=== PATIENT | female | born 1985 | race Two or more races ===

== ENCOUNTER 2016-11-22 00:06 | Emergency (ER) | payer SELFPAY ==
[2016-11-22] MEDS ORDERED: ASPIRIN 81 MG TABLET, CHEWABLE PO ONE (01:23)
[2016-11-22 02:18] LABS: ABSOLUTE BASOPHILS # (AUTO) 0.1 10^3/uL (0.0-0.2); ABSOLUTE EOSINOPHILS # (AUTO) 0.2 10^3/uL (0.0-0.6); ABSOLUTE LYMPHOCYTES (AUTO) 1.9 10^3/uL (0.5-4.7); ABSOLUTE MONOCYTES (AUTO) 1.1 10^3/uL (0.1-1.4); BASOPHILS % (AUTO) 0.4 % (0-2); EOSINOPHILS % (AUTO) 0.8 % (0-6); HEMATOCRIT 39.4 % (36.0-47.0); HGB HCT DIFFERENCE -0.4; LYMPHOCYTES % (AUTO) 10.1 % (13-45); MEAN CORPUSCULAR HEMOGLOBIN 31.2 pg (27.0-33.4); MEAN CORPUSCULAR VOLUME 94 fl (80-97); MONOCYTES % (AUTO) 5.9 % (3-13); RED BLOOD COUNT 4.17 10^6/uL (3.72-5.28); RED CELL DISTRIBUTION WIDTH 12.8 % (11.5-14.0); SEGMENTED NEUTROPHILS % (AUTO) 82.8 % (42-78); WHITE BLOOD COUNT 19.3 10^3/uL (4.0-10.5)
[2016-11-22 02:27] LABS: ALANINE AMINOTRANSFERASE 23 U/L (9-52); ALBUMIN 4.4 g/dL (3.5-5.0); ALKALINE PHOSPHATASE 97 U/L (38-126); ANION GAP 12 (5-19); ASPARTATE AMINO TRANSFERASE 17 U/L (14-36); BILIRUBIN,DIRECT 0.4 mg/dL (0.0-0.4); BILIRUBIN,TOTAL 0.7 mg/dL (0.2-1.3); BLOOD UREA NITROGEN 12 mg/dL (7-20); CALCIUM 9.9 mg/dL (8.4-10.2); CARBON DIOXIDE 24 mmol/L (22-30); CHLORIDE 103 mmol/L (98-107); CREATINE KINASE 55 U/L (30-135); CREATININE RESULT 0.77 mg/dL (0.52-1.25); GLUCOSE 172 mg/dL (75-110); POTASSIUM 4.3 mmol/L (3.6-5.0); SODIUM 139.2 mmol/L (137-145); TOTAL PROTEIN 8.1 g/dL (6.3-8.2)
[2016-11-22 02:39] LABS: CREATINE KINASE MB < 0.22 ng/mL (<4.55); TROPONIN I < 0.012 ng/mL
[2016-11-22] MEDS ORDERED: ALBUTEROL SULFATE 0.083% NEB 2.5 MG/3 ML AMPUL NEB ONE (03:21)
[2016-11-22] MEDS ORDERED: HYDROCODONE/ACETAMINOPHEN 5-325 MG 6 TAB/DSPK PO PRN (03:22)
[2016-11-22] MEDS ORDERED: HYDROCODONE/ACETAMINOPHEN 5-325 MG TABLET PO ONE (03:22)
[2016-11-22] MEDS ORDERED: DOXYCYCLINE HYCLATE 100 MG TABLET PO ONE (03:22)
--- NOTE | 2016-11-22 03:22 | ER Document Report ---
ED General - General Chief Complaint: Chest Pain Stated Complaint: CHEST PAIN Time Seen by Provider: 11/22/16 03:05 Mode of Arrival: Ambulatory Information source: Patient Notes: Patient is a 31-year-old -[place] female who presents to the ER today for 3 days of left chest pain radiating around to her back. Patient states that it feels like "rib pain." She does state that a storm door fell on her 4 days ago on she's been taking Motrin and Flexeril because she thought that is what caused her pain. She admits to some shortness of breath and pain with breathing on the left side only, nausea with no vomiting and headache. She also admits to body aches and fatigue. She denies any cough, fever, chills, runny nose, sinus congestion or other sick symptoms. She has no history of asthma. TRAVEL OUTSIDE OF THE [place] IN LAST 30 DAYS: No - Related Data Allergies/Adverse Reactions: No Known Allergies Allergy (Unverified 11/22/16 01:51) Past Medical History - General Information source: Patient - Social History Smoking Status: Never Smoker Family History: Reviewed & Not Pertinent Patient has suicidal ideation: No Patient has homicidal ideation: No Renal/ Medical History: Denies: Hx Peritoneal Dialysis Review of Systems - Review of Systems Constitutional: No symptoms reported EENT: No symptoms reported Cardiovascular: No symptoms reported Respiratory: See HPI Gastrointestinal: No symptoms reported Genitourinary: No symptoms reported Female Genitourinary: No symptoms reported Musculoskeletal: No symptoms reported Skin: No symptoms reported Hematologic/Lymphatic: No symptoms reported Neurological/Psychological: No symptoms reported Physical Exam - Vital signs Vitals: Temp Pulse Resp BP Pulse Ox 98.8 F 94 18 121/75 97 11/22/16 01:19 11/22/16 01:19 11/22/16 01:19 11/22/16 01:19 11/22/16 01:19 - Notes Notes: PHYSICAL EXAMINATION: GENERAL: Mildly ill-appearing, but in no acute distress. HEAD: Atraumatic, normocephalic. EYES: Pupils equal round and reactive to light, extraocular movements intact, sclera anicteric, conjunctiva are normal. ENT: ear canals without erythema or foreign body, TMs pearly mcclellan with good bony landmarks, nares patent, oropharynx clear without exudates. Moist mucous membranes. NECK: Normal range of motion, supple without lymphadenopathy LUNGS: ribs nontender, rhonchi in left lower lung field, pt not taking deep breaths due to pain, No wheezes or rales HEART: Regular rate and rhythm without murmurs ABDOMEN: Soft, no tenderness. No guarding, no rebound BACK: no vertebral tenderness, normal ROM GI/: no CVA tenderness EXTREMITIES: Normal range of motion, no pitting edema. No cyanosis. NEUROLOGICAL: Cranial nerves grossly intact. Normal sensory/motor exams. PSYCH: Normal mood, normal affect. SKIN: Warm, Dry, normal turgor, no rashes or lesions noted Course - Re-evaluation Re-evalutation: 11/22/16 03:29 pt has a WBC of 19 with a left shift, pneumonia seen on chest x ray in left lower field consistent with pt's pain and shortness of breath. pt will be treated with doxycycline and albuterol, prednisone. - Vital Signs Vital signs: Temp Pulse Resp BP Pulse Ox 98.8 F 90 16 123/69 96 11/22/16 01:19 11/22/16 04:08 11/22/16 04:08 11/22/16 04:08 11/22/16 04:08 - Laboratory Result Diagrams: 11/22/16 01:45 11/22/16 01:45 Laboratory results interpreted by me: 11/22/16 11/22/16 01:45 01:45 WBC 19.3 H Seg Neutrophils % 82.8 H Lymphocytes % 10.1 L Absolute Neutrophils 16.0 H Glucose 172 H Discharge - Discharge Clinical Impression: Pneumonia Qualifiers: Pneumonia type: due to unspecified organism Laterality: left Lung location: lower lobe of lung Qualified Code(s): J18.1 - Lobar pneumonia, unspecified organism Condition: Stable Disposition: HOME, SELF-CARE Instructions: Pneumonia ([facility]) Additional Instructions: Take all of your antibiotic, even if you feel better. Return immediately for any new or worsening symptoms. Follow up with primary care provider, call tomorrow to make followup appointment. Prescriptions: Doxycycline Hyclate 100 mg PO BID #20 capsule Hydrocodone/Acetaminophen [[place] 5-325 mg Tablet] 1 tab PO Q4 PRN #20 tablet PRN Reason: Prednisone [Deltasone 20 mg Tablet] 3 tab PO DAILY 5 Days Forms: Return to Work
[2016-11-22] MEDS ORDERED: PREDNISONE 20 MG TABLET PO ONE (03:23)
[2016-11-22] MEDS ORDERED: ALBUTEROL SULFATE HFA (90 MCG/PUFF) 8 GM MDI (1 MDI/ER DISP) IH PRN (03:33)
[2016-11-22 04:09] VITALS: BP 123/69
--- NOTE | 2016-11-22 13:53 | EKG REPORT ---
SEVERITY:- NORMAL ECG - SINUS RHYTHM : Confirmed by: Vazquez Fregoso 22-Nov-2016 13:53:09
== END 2016-11-22 04:08 | disposition home or self-care (01) ==
LOC: ER 00:06
DX: J18.1 Lobar pneumonia, unspecified organism (principal); R07.9 Chest pain, unspecified; R06.02 Shortness of breath
CPT/HCPCS: 93005; 94640; 99285; 36415; 82553; 82550; 85025; 80053; 84484; 71010; 93010; J7512; J3490

== ENCOUNTER 2016-12-12 16:43 | Inpatient (IN) | payer OTHER ==
--- NOTE | 2016-12-12 19:39 | ER Document Report ---
ED Medical Screen (RME) - General Chief Complaint: Breathing Difficulty Stated Complaint: DIFFICULTY BREATHING Time Seen by Provider: 12/12/16 19:23 Mode of Arrival: Ambulatory Information source: Patient Notes: This is a 31-year-old female with a recent history of pneumonia who presents for shortness of breath and concern for recurrence of pneumonia. She states that for the past 4 days she has had right-sided upper back pain that is worse with deep breathing and makes her feel short of breath. Her symptoms seem to be worse upon laying down to sleep at night. She denies any fevers or chills. She denies any productive cough. [facility] to come to the ER to rule out pneumonia versus PE. Was treated here on November 22 for a left lower lobe pneumonia with doxycycline and prednisone. I have greeted and performed a rapid initial assessment of this patient. A comprehensive ED assessment and evaluation of the patient, analysis of test results and completion of the medical decision making process will be conducted by additional ED providers. TRAVEL OUTSIDE OF THE [place] IN LAST 30 DAYS: No - Related Data Allergies/Adverse Reactions: No Known Allergies Allergy (Unverified 12/12/16 19:10) Past Medical History Renal/ Medical History: Denies: Hx Peritoneal Dialysis Physical Exam - General General appearance: Appears well In distress: None - Respiratory Respiratory status: No respiratory distress Breath sounds: Normal. No: Rales, Rhonchi, Wheezing - Cardiovascular Rhythm: Regular Heart sounds: Normal auscultation, S1 appreciated, S2 appreciated Murmur: No
[2016-12-12 20:09] LABS: ABSOLUTE BASOPHILS # (AUTO) 0.1 10^3/uL (0.0-0.2); ABSOLUTE EOSINOPHILS # (AUTO) 0.7 10^3/uL (0.0-0.6); ABSOLUTE LYMPHOCYTES (AUTO) 4.2 10^3/uL (0.5-4.7); ABSOLUTE MONOCYTES (AUTO) 0.7 10^3/uL (0.1-1.4); ABSOLUTE NEUT (AUTO) 7.6 10^3/uL (1.7-8.2); BASOPHILS % (AUTO) 0.8 % (0-2); EOSINOPHILS % (AUTO) 5.1 % (0-6); HEMATOCRIT 38.9 % (36.0-47.0); HGB HCT DIFFERENCE 0.1; LYMPHOCYTES % (AUTO) 31.8 % (13-45); MEAN CORPUSCULAR HGB CONC 33.4 g/dL (32.0-36.0); MEAN CORPUSCULAR VOLUME 93 fl (80-97); MONOCYTES % (AUTO) 5.3 % (3-13); RED BLOOD COUNT 4.18 10^6/uL (3.72-5.28); RED CELL DISTRIBUTION WIDTH 13.2 % (11.5-14.0); WHITE BLOOD COUNT 13.3 10^3/uL (4.0-10.5)
[2016-12-12 20:22] LABS: ALANINE AMINOTRANSFERASE 24 U/L (9-52); ALBUMIN 4.4 g/dL (3.5-5.0); ALKALINE PHOSPHATASE 82 U/L (38-126); ANION GAP 13 (5-19); ASPARTATE AMINO TRANSFERASE 20 U/L (14-36); BILIRUBIN,DIRECT 0.3 mg/dL (0.0-0.4); BILIRUBIN,TOTAL 0.5 mg/dL (0.2-1.3); BLOOD UREA NITROGEN 11 mg/dL (7-20); CALCIUM 10.2 mg/dL (8.4-10.2); CARBON DIOXIDE 25 mmol/L (22-30); CHLORIDE 104 mmol/L (98-107); CREATININE RESULT 0.76 mg/dL (0.52-1.25); GLUCOSE 122 mg/dL (75-110); POTASSIUM 4.5 mmol/L (3.6-5.0); SODIUM 142.2 mmol/L (137-145); TOTAL PROTEIN 7.9 g/dL (6.3-8.2)
--- NOTE | 2016-12-12 20:29 | RADIOLOGY REPORT (SQ) ---
EXAM DESCRIPTION: CHEST PA/LAT COMPLETED DATE/TIME: 12/12/2016 8:11 pm REASON FOR STUDY: cough, dyspnea, chest pain COMPARISON: 11/22/2016 EXAM PARAMETERS: NUMBER OF VIEWS: two views TECHNIQUE: Digital Frontal and Lateral radiographic views of the chest acquired. RADIATION DOSE: NA LIMITATIONS: none FINDINGS: LUNGS AND PLEURA: No opacities, masses or pneumothorax. No pleural effusion. MEDIASTINUM AND HILAR STRUCTURES: No masses or contour abnormalities. HEART AND VASCULAR STRUCTURES: Heart normal size. No evidence for failure. BONES: No acute findings. HARDWARE: None in the chest. OTHER: No other significant finding. IMPRESSION: NO SIGNIFICANT RADIOGRAPHIC FINDING IN THE CHEST. TECHNICAL DOCUMENTATION: JOB ID: [id number] [employer]- All Rights Reserved
--- NOTE | 2016-12-12 21:17 | ER Document Report ---
ED Respiratory Problem - General Mode of Arrival: Ambulatory TRAVEL OUTSIDE OF THE [place] IN LAST 30 DAYS: No <RADHA DAVIDSON - Last Filed: 12/13/16 00:04> <THIRERY SEAMAN - Last Filed: 12/13/16 00:18> - General Chief Complaint: Breathing Difficulty Stated Complaint: DIFFICULTY BREATHING Time Seen by Provider: 12/12/16 19:23 Notes: Patient is a 31-year-old female, smoker, on OCPs, presents with increasing shortness of breath and pleuritic chest pain in her right posterior thorax over the past 4 days. She was seen at the [facility] today and was sent to the ER to evaluate for possible pneumonia and pulmonary embolism. She was diagnosed with pneumonia on 11/22 and finished her course of doxycycline. She has some relief of her symptoms after her Abx. She had an ultrasound of her left leg completed last week for calf pain that did not show a DVT, but she was told to begin ASA 81 mg for a possible calf clot. She denies current leg pain and swelling, fevers , nausea, numbness, tingling, hemoptysis, recent travel or cough. (RADHA DAVIDSON) - Related Data Allergies/Adverse Reactions: No Known Allergies Allergy (Unverified 12/12/16 19:10) Past Medical History - General Information source: Patient - Social History Smoking Status: Current Every Day Smoker - 1 ppd Family History: Reviewed & Not Pertinent Patient has suicidal ideation: No Patient has homicidal ideation: No Renal/ Medical History: Denies: Hx Peritoneal Dialysis <RADHA DAVIDSON - Last Filed: 12/13/16 00:04> Review of Systems <RADHA DAVIDSON - Last Filed: 12/13/16 00:04> <THIERRY SEAMAN - Last Filed: 12/13/16 00:18> - Review of Systems Notes: REVIEW OF SYSTEMS: CONSTITUTIONAL: -fevers, -chills EENT: -eye pain, -difficulty swallowing, -nasal congestion CARDIOVASCULAR: +chest pain, -syncope. RESPIRATORY: -cough, +SOB GASTROINTESTINAL: -abdominal pain, -nausea, -vomiting, -diarrhea GENITOURINARY: -dysuria, -hematuria MUSCULOSKELETAL: -back pain, -neck pain SKIN: -rash or skin lesions. HEMATOLOGIC: -easy bruising or bleeding. LYMPHATIC: -swollen, enlarged glands. NEUROLOGICAL: -altered mental status or loss of consciousness, -headache, - neurologic symptoms PSYCHIATRIC: -anxiety, -depression. ALL OTHER SYSTEMS REVIEWED AND NEGATIVE. (RADHA DAVIDSON) Physical Exam <RADHA DAVIDSON - Last Filed: 12/13/16 00:04> <THIERRY SEAMAN - Last Filed: 12/13/16 00:18> - Vital signs Vitals: Resp Pulse Ox 22 H 96 12/12/16 22:54 12/12/16 22:54 - Notes Notes: PHYSICAL EXAMINATION: GENERAL: Well-appearing, well-nourished and in no acute distress. HEAD: Atraumatic, normocephalic. EYES: Pupils equal round and reactive to light, extraocular movements intact, sclera anicteric, conjunctiva are normal. ENT: nares patent, oropharynx clear without exudates. Moist mucous membranes. NECK: Normal range of motion, supple without lymphadenopathy LUNGS: Breath sounds clear to auscultation bilaterally and equal. No wheezes rales or rhonchi. HEART: Regular rate and rhythm without murmurs ABDOMEN: Soft, nontender, normoactive bowel sounds. No guarding, no rebound. No masses appreciated. EXTREMITIES: Normal range of motion, no pitting or edema. No cyanosis. No calf tenderness. NEUROLOGICAL: Cranial nerves grossly intact. Normal speech, normal gait. Normal sensory and motor exams. PSYCH: Normal mood, normal affect. SKIN: Warm, Dry, normal turgor, no rashes or lesions noted. (RADHA DAVIDSON) Course - Laboratory Result Diagrams: 12/12/16 19:50 12/12/16 19:50 - Diagnostic Test Radiology reviewed: Image reviewed, Reports reviewed - EKG Interpretation by Ks EKG shows normal: Sinus rhythm, [place], Intervals, QRS Complexes, ST-T Waves Rate: Normal <RADHA DAVIDSON - Last Filed: 12/13/16 00:04> - Laboratory Result Diagrams: 12/12/16 19:50 12/12/16 19:50 <THIERRY SEAMAN - Last Filed: 12/13/16 00:18> - Re-evaluation Re-evalutation: With SOB and chest pain, pt is low-moderate risk for PE. Unable to PERC out due to OCP use. D-dimer elevated and CTA shows B/L PEs. Pt is HD stable at this time. (RADHA DAVIDSON) 12/13/16 00:17 Discussed with hospitalist will admit to IMCU (THIERRY SEAMAN) - Vital Signs Vital signs: Temp Pulse Resp BP Pulse Ox 17 120/76 96 12/12/16 23:01 12/12/16 23:01 12/12/16 23:01 - Laboratory Laboratory results interpreted by me: 12/12/16 12/12/16 12/12/16 19:50 19:50 19:50 WBC 13.3 H Absolute Eosinophils 0.7 H D-Dimer 2.56 H Glucose 122 H - Diagnostic Test Radiology results interpreted by me: CXR: NAD CTA Chest: Pulmonary embolic disease involving descending pulmonary arteries bilaterally. There is also pulmonary embolic disease involving an upper lobe vessel on the right. Minimal linear airspace density in the posterior sulcus on the right most consistent with subsegmental atelectasis. Remaining lung foy are clear. No pleural effusions are identified. Other findings as noted above. ( RADHA DAVIDSON) Discharge <RADHA DAVIDSON - Last Filed: 12/13/16 00:04> - Discharge Admitting Provider: Hospitalist - [place] [facility] Admitted: [facility] <THIERRY SEAMAN - Last Filed: 12/13/16 00:18> - Discharge Clinical Impression: Pulmonary embolism Qualifiers: Pulmonary embolism type: other Chronicity: acute Acute cor pulmonale presence: without acute cor pulmonale Qualified Code(s): I26.99 - Other pulmonary embolism without acute cor pulmonale Condition: Stable Disposition: ADMITTED OBSERVATION
--- NOTE | 2016-12-12 21:56 | RADIOLOGY REPORT (SQ) ---
EXAM DESCRIPTION: CTA CHEST COMPLETED DATE/TIME: 12/12/2016 9:41 pm REASON FOR STUDY: concern for PE COMPARISON: None. TECHNIQUE: CT scan of the chest performed using helical scanning technique with dynamic intravenous contrast injection. Images reviewed with lung, soft tissue and bone windows. Reconstructed coronal and sagittal MPR images reviewed. Additional 3 dimensional post-processing performed to develop Maximal Intensity Projection images (SC P). All images stored on PACS. All CT scanners at this facility use dose modulation, iterative reconstruction, and/or weight based d osing when appropriate to reduce radiation dose to as low as reasonably achievable (ALARA). [facility]: Dose Right [facility]: CareDose [facility]: Dose Right [facility]: Teradose 4D [facility]: [employer] CONTRAST TYPE AND DOSE: 70 mL Isovue 370 RENAL FUNCTION: Creatinine 0.76 RADIATION DOSE: 34.16 mGy. LIMITATIONS: None. FINDINGS: LUNGS AND PLEURA: No masses, infiltrates, pneumothorax. No pleural effusions, calcificati ons. There is minimal linear airspace density in the posterior sulcus on the right most consistent w ith subsegmental atelectasis. No pneumothorax is seen. AORTA AND GREAT VESSELS: No aneurysm or dissection. HEART: No pericardial effusion. PULMONARY ARTERIES: There is evidence for bilateral pulmonary embolic disease involving descending pu lmonary arteries bilaterally. There is also pulmonary embolic disease an upper lobe vessel on the ri ght HILAR AND MEDIASTINAL STRUCTURES: No identified masses or abnormal nodes. HARDWARE: None in the chest. UPPER ABDOMEN: No significant findings. Limited exam. THYROID AND OTHER SOFT TISSUES: No masses. No adenopathy. BONES: No acute or significant finding. 3D MIPS: Confirm above findings. OTHER: No other significant finding. IMPRESSION: Pulmonary embolic disease involving descending pulmonary arteries bilaterally. There is also pulmonary embolic disease involving an upper lobe vessel on the right Minimal linear airspace d ensity in the posterior sulcus on the right most consistent with subsegmental atelectasis. Remaining lung foy are clear. No pleural effusions are identified. Other findings as noted above TECHNICAL DOCUMENTATION: JOB ID: [id number] Quality ID # [id number]: Final reports with documentation of one or more dose reduction techniques (e.g., Au tomated exposure control, adjustment of the mA and/or kV according to patient size, use of iterative reconstruction technique) 2010 [employer]- All Rights Reserved
[2016-12-12] MEDS ORDERED: ENOXAPARIN SODIUM INJ 80 MG/0.8 ML DISP.SYRIN SUBCUT ONE (22:14)
[2016-12-13 02:16] LABS: PARTIAL THROMBOPLASTIN TIME 34.6 SEC (23.5-35.8); PROTHROMBIN TIME 12.8 SEC (11.4-15.4)
[2016-12-13] MEDS ORDERED: NICOTINE 14 MG/24 HR PATCH.TD24 TD PRN (08:12)
[2016-12-13] MEDS ORDERED: ACETAMINOPHEN 325 MG TABLET PO PRN (08:13)
[2016-12-13] MEDS ORDERED: MAGNESIUM HYDROXIDE SUSP 30 ML UDCUP PO PRN (08:13)
--- NOTE | 2016-12-13 08:32 | PDOC H&P ---
History of Present Illness Admission Date/PCP: 12/13/16 00:21 PCP [place] Patient complains of: SOB, Rt. cp History of Present Illness: ALEJANDRO RATLIFF is a 31 year old -[place] female, 1/2-1 pack a day smoker, also on oral contraceptives, who presents to the emergency room for evaluation of above complaints. Patient has been discussed with emergency room physician who evaluated the patient. She describes a four-day history of slowly increasing shortness of breath, in particular with much of any exertion, along with pleuritic chest pain in her right posterior thorax. Was seen at the [facility] earlier on the and was sent to the emergency room to evaluate for possible pneumonia or pulmonary embolism. Diagnosed with pneumonia on the of last month and finished her course of doxycycline. Some relief of her symptoms after the antibiotics. She did have bilateral lower extremity Doppler exam performed last week, of her thighs, per patient, but stated no DVT was noted. She was however told to begin an aspirin for possible Clot. In mid October of this year, she did take an automobile trip to [place] and returned 8 days later, again by automobile. Few stops along the way. She has noted some mild left foot swelling intermittently since then along with the mild left calf pain noted above. No other lower extremity pain or swelling. No personal or family history of clotting disorders. Denies hemoptysis. Currently resting quietly, pain-free. Has remained hemodynamically stable. Laboratory results are listed in [facility] and are reviewed. X-ray summary results are listed below, with full report(s) reviewed. . EKG reviewed. Social history/personal habits: . Has children. Eighth grade schoolteacher. Tobacco habit as noted above. Rare alcohol. No illicit drug use. No known drug allergies. Home medications none. REVIEW OF SYSTEMS: Constitutional: No fever or chills. Eyes: Wears contacts. ENT: No swallowing problems or complaints. Denies hearing loss. Pulmonary: See history and present illness. Cardiovascular: See history and present illness. Gastrointestinal: No current complaints, including nausea or vomiting. Skin: No current complaints, including rashes. Hematologic: Denies easy bruising. Neurologic: No current complaints, including numbness or tingling. Musculoskeletal: See history and present illness. Psychiatric: Denies anxiety or depression. Endocrine: No current complaints, including polyuria. Genitourinary: No current complaints, including dysuria. PHYSICAL EXAMINATION: 5 feet 7 inches tall. 79.6 kg. BMI 27.5 kg/m. Temperature 98.5. Pulse 66 and regular. Blood pressure 114/73. Respirations are 16 and unlabored. 98% saturation on room air. Slightly overweight otherwise well-nourished well-developed young - Ethiopian female appearing approximately her stated age. Pleasant awake alert and cooperative. No obvious distress other than perhaps mildly anxious. No agitation. 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 Skin is warm and dry. No grossly obvious evidence of rash in areas of skin examined. No subcutaneous nodules palpated. ENT: Hearing grossly normal to normal conversation. Tongue midline on protrusion pink and slightly moist. Eyes: No scleral icterus. Pupils equal and reactive to light at 4 mm. [place] conjunctivae. Neck is supple and nontender to gentle active range of motion and palpation. Midline trachea. No palpable thyroid nodule mass enlargement or tenderness. Lymphatic: No palpable cervical or clavicular nodes. Neck and lymphatic exams limited by patient body habitus. Psychiatric: Reasonable insight into acute and chronic medical issues. Oriented to time location and why here. Lungs: Auscultation reveals clear and equal breath sounds bilaterally. No use of accessory respiratory muscles. Cardiovascular: Heart regular rate and rhythm, without gallop murmur or rub. No carotid or abdominal aortic bruits. No ankle or pedal edema. Palpable dorsalis pedis pulses. Abdomen:soft slightly distended nontender with positive bowel sounds. Unable to adequately evaluate abdomen for masses or organomegaly due to distention. Extremities: Feet are warm and dry. No calf tenderness to compression. No grossly obvious visual evidence of calf swelling. Gentle manipulation of lower extremities fails to reveal any obvious evidence of injury or instability to knees hips or ankles. Neurologic: Moves upper extremities grossly normally. Patellar reflexes absent. Absent Babinski. Light touch is intact at feet. Dorsiflexion and plantarflexion of feet 5 / 5 and symmetric. Past Medical History Cardiac Medical History: Denies: Congestive Heart Failure, DVT, Myocardial Infarction, Hyperlipidema, Hypertension, Pulmonary Embolism Pulmonary Medical History: Denies: Asthma, Chronic Obstructive Pulmonary Disease (COPD), Sleep Apnea EENT Medical History: Reports: Eyes - Wears contacts Denies: Ears, Throat Neurological Medical History: Denies: Hemorrhagic CVA, Ischemic CVA, Seizures Endocrine Medical History: Denies: Diabetes Mellitus Type 1, Diabetes Mellitus Type 2, Hyperthyroidism, Hypothyroidism Renal/ Medical History: Reports: None GI Medical History: Denies: Cirrhosis, Gastroesophageal Reflux Disease, Hepatitis, Peptic Ulcer Disease Musculoskeltal Medical History: Denies: Arthritis Psychiatric Medical History: Reports: Tobacco Dependency Denies: Alcohol Dependency, Depression, General Anxiety Disorder, Substance Abuse Hematology: Reports: None Infectious Medical History: Denies: Clostridium Difficile, Hepatitis B, Hepatitis C, Methicillin- Resistant Staph Aureus Past Surgical History Past Surgical History: Reports: Tonsillectomy, Other - Breast augmentation Social History Information Source: Patient, Emergency Med Personnel, [facility] Records Smoking Status: Current Every Day Smoker Cigarettes Packs Per Day: 1 Frequency of Alcohol Use: Rare Hx Recreational Drug Use: No Drugs: None Hx Prescription Drug Abuse: No - Advance Directive Resuscitation Status: Full Code Surrogate healthcare decision maker:: Father Family History Family History: Reviewed & Not Pertinent Parental Family History Reviewed: Yes - Father is healthy. Mother of breast cancer. Children Family History Reviewed: Yes - Son is asthmatic. Sibling(s) Family History Reviewed.: Yes - Healthy Medication/Allergy Home Medications: Norethindrone [Ortho Micronor] 0.35 mg PO ASDIR PRN #1 packet 12/14/16 Rivaroxaban [Xarelto] 20 mg PO DAILY #30 tablet 12/14/16 Varenicline Tartrate [Chantix] 1 each PO ASDIR PRN #1 packet 12/14/16 Allergies/Adverse Reactions: No Known Allergies Allergy (Unverified 12/12/16 19:10) Physical Exam Vital Signs: Temp Pulse Resp BP Pulse Ox 98.5 F 66 16 114/73 98 12/13/16 07:37 12/13/16 07:37 12/13/16 07:37 12/13/16 07:37 12/13/16 07:37 Intake & Output 12/12/16 12/13/16 12/14/16 00:59 00:59 00:59 Intake Total 200 Balance 200 Weight 79.6 kg Results Impressions: Chest X-Ray 12/12/16 19:24 IMPRESSION: NO SIGNIFICANT RADIOGRAPHIC FINDING IN THE CHEST. Chest/Abdomen CTA 12/12/16 20:53 IMPRESSION: Pulmonary embolic disease involving descending pulmonary arteries bilaterally. There is also pulmonary embolic disease involving an upper lobe vessel on the right Minimal linear airspace density in the posterior sulcus on the right most consistent with subsegmental atelectasis. Remaining lung foy are clear. No pleural effusions are identified. Other findings as noted above Assessment & Plan - Diagnosis (1) Anticoagulated Is this a current diagnosis for this admission?: YesPlan: Systemic anticoagulation recommended to patient. Patient understands the risks of systemic anti-coagulation to include but not be limited to internal bleeding , which can take the form of GI tract and/or intracranial hemorrhage, the latter of which can result in or stroke with permanent paralysis. Patient has no absolute contraindication to systemic anticoagulation. Above discussed in lay person's terms. Patient agrees to undergo systemic anticoagulation. We will continue with Lovenox for the present time. (2) Pulmonary embolism Qualifiers: Pulmonary embolism type: other Chronicity: acute Acute cor pulmonale presence: without acute cor pulmonale Qualified Code(s): I26.99 - Other pulmonary embolism without acute cor pulmonale Is this a current diagnosis for this admission?: YesPlan: Has remained hemodynamically stable. Hematology consult. Lower extremity venous Doppler study. I have strongly encouraged patient to be careful getting out of bed, to avoid a fall with injury. Knee high SCDs for DVT prophylaxis. Impression and plans were discussed with patient who concurs. Time spent in evaluation and management of patient: 57 minutes. (3) Oral contraceptive use Is this a current diagnosis for this admission?: Yes (4) Tobacco dependency Is this a current diagnosis for this admission?: YesPlan: As needed nicotine patch. (5) DVT prophylaxis Is this a current diagnosis for this admission?: Yes
[2016-12-13] MEDS ORDERED: ENOXAPARIN SODIUM INJ 80 MG/0.8 ML DISP.SYRIN SUBCUT SCH (10:00)
--- NOTE | 2016-12-13 10:00 | EKG REPORT ---
SEVERITY:- NORMAL ECG - SINUS RHYTHM : Confirmed by: Vazquez Fregoso 13-Dec-2016 09:59:52
[2016-12-13] MEDS ORDERED: ENOXAPARIN SODIUM INJ 80 MG/0.8 ML DISP.SYRIN SUBCUT ONE (10:30)
--- NOTE | 2016-12-13 11:05 | RADIOLOGY REPORT (SQ) ---
EXAM DESCRIPTION: VENOUS BILATERAL LOWER COMPLETED DATE/TIME: 12/13/2016 10:38 am REASON FOR STUDY: PE COMPARISON: CT angio chest 12/12/2016 TECHNIQUE: Dynamic and static coleman scale and color images acquired of both lower extremity venous sy stems. Selected spectral images acquired with additional compression and augmentation maneuvers. Imag es stored on PACS. LIMITATIONS: None. FINDINGS: RIGHT LEG COMMON FEMORAL AND FEMORAL: Normal phasicity, compression and augmentation. No visualized echogenic m aterial on coleman scale. No defects on color images. POPLITEAL: Normal compression and augmentation. No visualized echogenic material on coleman scale. No de fects on color images. CALF VESSELS: Normal compression and augmentation. No visualized echogenic material on coleman scale. No defects on color image. GSV AND SSV: Normal compression. No visualized echogenic material on coleman scale. No defects on color images. ANY DEEP VENOUS INSUFFICIENCY: Not evaluated. ANY EVIDENCE OF POPLITEAL CYST: No. OTHER: No other significant finding. LEFT LEG COMMON FEMORAL AND FEMORAL: Normal phasicity, compression and augmentation. No visualized echogenic m aterial on coleman scale. No defects on color images. POPLITEAL: Acute hypoechoic clot fills the popliteal vein and prevents compression. There is incompl ete occlusion of the popliteal vein. CALF VESSELS: Hypoechoic clot occludes 1 of the paired posterior tibial veins, and 1 of the paired pe roneal veins. GSV AND SSV: Normal compression. No visualized echogenic material on coleman scale. No defects on color images. ANY DEEP VENOUS INSUFFICIENCY: Not evaluated. ANY EVIDENCE POPLITEAL CYST: No. OTHER: No other significant finding. IMPRESSION: Acute incompletely occlusive clot in the left popliteal vein Acute clot in 1 of the paired posterior tibial veins and 1 of the paired peroneal veins. COMMENT: Pertinent findings on the imaging study reported as a CRITICAL RESULT to Joe dooley t10:50 on 12/13/2016. Category of Critical Result: Left leg deep venous thrombosis TECHNICAL DOCUMENTATION: JOB ID: [id number] [employer]- All Rights Reserved
[2016-12-13] MEDS: DOCUSATE SODIUM 100 MG CAPSULE PO SCH ×2 (11:22→17:20)
--- NOTE | 2016-12-13 16:38 | PROGRESS NOTE E ---
Progress Note NAME: ALEJANDRO RATLIFF : 1985 AGE: 31Y DATE: 12/13/2016 ROOM: 336 SUBJECTIVE: The patient is lying in bed. She states that she will get short of breath when ambulating but overall feels much improved in comparison to when she came in. The patient denies any nausea, vomiting, or diarrhea. No dizziness or chest pain. No fevers or chills. The patient has been afebrile. Her blood pressure has been in a good range. The patient was concerned regarding contraception. The patient states that barrier methods have not worked for her in the past due to irritation. Did discuss in detail methods such as rhythm method, vaginal contraceptive film as well as appropriate prophylactic uses. The patient did voice understanding and actually had downloaded an betzaida. REVIEW OF SYSTEMS: Rest of the review of systems negative. MEDICATIONS: Have been reviewed. OBJECTIVE: GENERAL: The patient is a 31-year-old female who is awake, alert, and oriented to person, place, time, and situation. She is verbal, conversational, ambulatory, and does not appear to be in acute distress. VITAL SIGNS: Temperature 98.5, pulse 67, respirations 16, blood pressure 114/52, oxygen saturation is 100% on room air. SKIN: Warm and dry. No rash. Not diaphoretic. HEENT: Pupils equal, round, reactive to light and accommodation. Conjunctivae are pink. NECK: There is no JVP. CARDIOVASCULAR: Heart is regular with no murmur or rub. CHEST: Clear, symmetrical, unlabored. ABDOMEN: Soft, nontender, nondistended. Bowel sounds are present. BACK: No CVA tenderness or sacral edema. EXTREMITIES: No clubbing, cyanosis, edema. PSYCHIATRIC: Appropriate affect. Pleasant mood. DIAGNOSTICS: Lab values are as follows: Chemistry obtained on 12/12/2016: Sodium 142, potassium 4.5, chloride 104, carbon dioxide 25, BUN 11, creatinine 0.67, glucose 122, calcium is 10.2, bilirubin 0.5, AST 20, ALT 24, alk phos 32, total protein 7.9, albumin 4.4. IMPRESSION AND PLAN: 1. PULMONARY EMBOLISM. The patient's symptoms have improved. She is not requiring supplemental O2. Will continue Lovenox. Do appreciate Hematology's input with this and will follow. 2. LEFT DVT PER #1. 3. CONTRACEPTION. The patient does have 3 children and does not desire any more children. Once again did discuss nonhormonal methods in detail and educated the patient with [employer] betzaida. The patient is receptive to this. Further collaboration would be appreciated from Hematology as well as her MECHATRONICS ENGINEER. DISPOSITION: The patient is a FULL CODE. Pending patient's symptomatology and diagnostic findings, will reevaluate in the a.m. for discharge. Time spent on this visit including assessment, plan, physical examination, extensive patient education is 35 minutes. DICTATING PHYSICIAN: PATTI SCHILLING NP [id number] PHY#: [id number] ID: [id number] JOB#: [id number] ACCT: [id number] cc: >
[2016-12-13] MEDS: ENOXAPARIN SODIUM INJ 80 MG/0.8 ML DISP.SYRIN SUBCUT SCH (23:02)
[2016-12-14 06:26] LABS: HEMATOCRIT 37.5 % (36.0-47.0); HEMOGLOBIN 12.8 g/dL (12.0-15.5); HGB HCT DIFFERENCE 0.9; MEAN CORPUSCULAR HGB CONC 34.1 g/dL (32.0-36.0); MEAN CORPUSCULAR VOLUME 94 fl (80-97); RED BLOOD COUNT 3.99 10^6/uL (3.72-5.28); WHITE BLOOD COUNT 9.1 10^3/uL (4.0-10.5)
--- NOTE | 2016-12-14 08:47 | PDOC CONSULTATION ---
Consultation Consult Date: 12/14/16 Attending physician:: ALEJANDRO ANAND Consult reason:: DVT, PE History of Present Illness Admission Date/PCP: 12/13/16 15:15 Patient complains of: DVT/PE History of Present Illness: 31-year-old female Who presented with about a 6 week history of pain in the left calf, about 2 weeks ago she began having shortness of breath, she was treated for pneumonia, ultimately the shortness of breath got worse and she presented to the ED. Here she had CTA of the chest and this indicated multiple bilateral PE, she had ultrasound of the legs and this indicated a left lower extremity DVT. Of note she is an active smoker and is on oral anticoagulation, does have history of heavy menses prior to being on oral anticoagulation. There is no significant family history of thrombosis. She has never had personal history of thrombosis. Past Medical History Cardiac Medical History: Denies: Congestive Heart Failure, DVT, Myocardial Infarction, Hyperlipidema, Hypertension, Pulmonary Embolism Pulmonary Medical History: Denies: Asthma, Chronic Obstructive Pulmonary Disease (COPD), Sleep Apnea EENT Medical History: Reports: Eyes - Wears contacts Denies: Ears, Throat Neurological Medical History: Denies: Hemorrhagic CVA, Ischemic CVA, Seizures Endocrine Medical History: Denies: Diabetes Mellitus Type 1, Diabetes Mellitus Type 2, Hyperthyroidism, Hypothyroidism Renal/ Medical History: Reports: None GI Medical History: Denies: Cirrhosis, Gastroesophageal Reflux Disease, Hepatitis, Peptic Ulcer Disease Musculoskeltal Medical History: Denies: Arthritis Psychiatric Medical History: Reports: Tobacco Dependency Denies: Alcohol Dependency, Depression, General Anxiety Disorder, Substance Abuse Hematology: Reports: None Infectious Medical History: Denies: Clostridium Difficile, Hepatitis B, Hepatitis C, Methicillin- Resistant Staph Aureus Past Surgical History Past Surgical History: Reports: Tonsillectomy, Other - Breast augmentation Social History Smoking Status: Current Every Day Smoker Cigarettes Packs Per Day: 1 Frequency of Alcohol Use: Rare Hx Recreational Drug Use: No Drugs: None Hx Prescription Drug Abuse: No - Advance Directive Resuscitation Status: Full Code Family History Family History: Reviewed & Not Pertinent Parental Family History Reviewed: Yes Children Family History Reviewed: Yes Sibling(s) Family History Reviewed.: Yes Medication/Allergy Home Medications: Aspirin [Aspirin 81 mg Chewable Tablet] 81 mg PO DAILY 12/13/16 Norethindrone-E.estradiol-Iron [Microgestin Fe 1-20 Tablet] 1 each PO DAILY 07/31 Allergies/Adverse Reactions: No Known Allergies Allergy (Unverified 12/12/16 19:10) Review of Systems Constitutional: ABSENT: chills, fever(s), headache(s), weight gain, weight loss Eyes: ABSENT: visual disturbances Ears: ABSENT: hearing changes Cardiovascular: ABSENT: chest pain, dyspnea on exertion, edema, orthropnea, palpitations Respiratory: ABSENT: cough, hemoptysis Gastrointestinal: ABSENT: abdominal pain, constipation, diarrhea, hematemesis, hematochezia, nausea, vomiting Genitourinary: ABSENT: dysuria, hematuria Musculoskeletal: ABSENT: joint swelling Integumentary: ABSENT: rash, wounds Neurological: ABSENT: abnormal gait, abnormal speech, confusion, dizziness, focal weakness, syncope Psychiatric: ABSENT: anxiety, depression, homidical ideation, suicidal ideation Endocrine: ABSENT: cold intolerance, heat intolerance, polydipsia, polyuria Hematologic/Lymphatic: ABSENT: easy bleeding, easy bruising Physical Exam Vital Signs: Temp Pulse Resp BP Pulse Ox 98.4 F 59 L 18 104/60 99 12/14/16 03:54 12/14/16 03:54 12/14/16 03:54 12/14/16 03:54 12/14/16 03:54 Intake & Output 12/13/16 12/14/16 12/15/16 06:59 06:59 06:59 Intake Total 1142 Output Total 1000 Balance 142 Weight 79.5 kg General appearance: PRESENT: no acute distress, well-developed, well-nourished Head exam: PRESENT: atraumatic, normocephalic Eye exam: PRESENT: conjunctiva pink, EOMI, PERRLA. ABSENT: scleral icterus Ear exam: PRESENT: normal external ear exam Mouth exam: PRESENT: moist, tongue midline Neck exam: ABSENT: carotid bruit, JVD, lymphadenopathy, thyromegaly Respiratory exam: PRESENT: clear to auscultation carlos. ABSENT: rales, rhonchi, wheezes Cardiovascular exam: PRESENT: RRR. ABSENT: diastolic murmur, rubs, systolic murmur Pulses: PRESENT: normal dorsalis pedis pul Vascular exam: PRESENT: normal capillary refill GI/Abdominal exam: PRESENT: normal bowel sounds, soft. ABSENT: distended, guarding, mass, organolmegaly, rebound, tenderness Rectal exam: PRESENT: deferred Extremities exam: PRESENT: full ROM. ABSENT: calf tenderness, clubbing, pedal edema Neurological exam: PRESENT: alert, awake, oriented to person, oriented to place , oriented to time, oriented to situation, CN II-XII grossly intact. ABSENT: motor sensory deficit Psychiatric exam: PRESENT: appropriate affect, normal mood. ABSENT: homicidal ideation, suicidal ideation Skin exam: PRESENT: dry, intact, warm. ABSENT: cyanosis, rash Results Laboratory Results: 12/14/16 05:39 12/14/16 05:39 WBC 9.1 RBC 3.99 Hgb 12.8 Hct 37.5 MCV 94 MCH 32.0 MCHC 34.1 RDW 13.0 Plt Count 207 Impressions: Chest X-Ray 12/12/16 19:24 IMPRESSION: NO SIGNIFICANT RADIOGRAPHIC FINDING IN THE CHEST. Chest/Abdomen CTA 12/12/16 20:53 IMPRESSION: Pulmonary embolic disease involving descending pulmonary arteries bilaterally. There is also pulmonary embolic disease involving an upper lobe vessel on the right Minimal linear airspace density in the posterior sulcus on the right most consistent with subsegmental atelectasis. Remaining lung foy are clear. No pleural effusions are identified. Other findings as noted above Venous Doppler Study 12/13/16 00:00 IMPRESSION: Acute incompletely occlusive clot in the left popliteal vein Acute clot in 1 of the paired posterior tibial veins and 1 of the paired peroneal veins. Assessment & Plan - Diagnosis (1) Pulmonary embolism Qualifiers: Pulmonary embolism type: other Chronicity: acute Acute cor pulmonale presence: without acute cor pulmonale Qualified Code(s): I26.99 - Other pulmonary embolism without acute cor pulmonale Is this a current diagnosis for this admission?: YesPlan: PE/DVT secondary to smoking and control, so provoked, she will need to be on Xarelto 15 mg twice a day for 21 days then 20 mg daily thereafter. We will bring her samples given the fact that she is at the [facility] only for the 21 day supply and then we will give prescription for the 20 mg to get through the [facility]. She will need be a authorization before she can see us, so I instructed her to make an appointment with her [facility] doctor and gave her information for fee she should also receive Chantix Prescription, also recommended discontinuation of estrogen containing control and giving her progesterone only control. (2) Deep vein thrombosis (DVT) of left lower extremity Qualifiers: Affected thrombotic vein of extremity: popliteal Chronicity: acute Qualified Code(s): I82.432 - Acute embolism and thrombosis of left popliteal vein Is this a current diagnosis for this admission?: YesPlan: DVT as above, anticoagulation plan as above. - Time Time Spent: Greater than 70 Minutes Critical Time spent with patient: 35 or more minutes
[2016-12-14] MEDS: DOCUSATE SODIUM 100 MG CAPSULE PO SCH (09:34)
[2016-12-14] MEDS: ENOXAPARIN SODIUM INJ 80 MG/0.8 ML DISP.SYRIN SUBCUT SCH (09:40)
[2016-12-14 11:15] VITALS: BP 108/64
--- NOTE | 2016-12-15 07:43 | DISCHARGE SUMMARY E ---
Discharge Summary NAME: ALEJANDRO RATLIFF : 1985 AGE: 31Y ADMITTED: 12/13/2016 DISCHARGED: 12/14/2016 CODE STATUS: FULL CODE. PRIMARY CARE PROVIDER: [facility]. BLACKJACK DEALER: Fidencio Baker MD DISCHARGE DIAGNOSES: Include: 1. Pulmonary embolism. 2. Deep vein thrombosis. 3. Tobacco dependency. DISCHARGE MEDICATIONS: Include: 1. Xarelto as directed. 2. Chantix starter pack as directed. 3. Minipill as directed. DIET: As tolerated. ACTIVITY: As tolerated. HISTORY OF PRESENT ILLNESS: The patient is a 31-year-old female with a past medical history that is essentially unremarkable other than tobacco dependency. The patient presented to the emergency department with a chief complaint of right chest pain and shortness of breath. The patient described a 4-day history of slowly increasing shortness of breath, in particular with much exertion, along with pleuritic style chest pain in the right posterior thorax. The patient had been seen by the [facility] earlier on December 12 and sent to the emergency department to evaluate for pneumonia and possible pulmonary embolism. The patient was diagnosed with pneumonia on the left and started a course of doxycycline with some relief after the antibiotic. The patient did have bilateral lower extremity Doppler performed last week, but stated there was no DVT noted at that time. However, she was told to begin an aspirin for possible clot. In mid October of this year, the patient had taken an automobile trip to [place] and returned 8 days later, again by automobile, but stopped along the way. The patient was noted to have some mild left foot swelling intermittently since then, along with mild left calf pain. No personal or family history of clotting disorders. Denies hemoptysis. The patient underwent CT angiogram and findings were consistent with a pulmonary embolic disease in the descending pulmonary arteries bilaterally. Also, pulmonary embolic disease involving the upper lobe vessels on the right and minimal linear airspace. The patient was referred to the hospitalist for admission and management. HOSPITAL COURSE: The patient was admitted [facility]. The patient was placed on therapeutic Lovenox coverage. The patient underwent bilateral lower extremity Doppler and findings were consistent with DVT. Given the patient's age, the patient was asked to be seen by Hematology and recommendations were made for transition to Xarelto. The patient did tolerate this well and samples of Xarelto were made available to the patient from Hematology. I spent 3 minutes discussing smoking cessation education. The patient declined any pharmacological intervention at that time. However, the patient was started on a nicotine patch after discussion with Hematology. The patient has elected to proceed with Chantix and a prescription will be provided for that. A long discussion was had with the patient regarding various contraception. The patient declines barrier methods at this time, stating high risk for infection. This was discussed with Hematology and has elected to proceed with the Minipill, as the patient has tolerated this well in the past. DIAGNOSTICS: Lab values are as follows: Hematology obtained 12/14/2016: WBC 9.1; hemoglobin 12.9; hematocrit 37.5; platelet count 207,000. Coagulation panel obtained on 12/13/2016: PT 12.8, INR 0.9, D-dimer 2.56. Chemistry obtained on 12/12/2016: Sodium 142, potassium 4.5, chloride 104, carbon dioxide 25, BUN 11, creatinine 0.76, glucose 122, calcium 10.2, bilirubin 0.5, AST 28, ALT 24, alkaline phosphatase 82, total protein 7.9, albumin 4.4. HCG is negative. Chest x-ray obtained on 12/12/2016 revealed no significant radiographic finding of the chest. Chest CTA obtained on 12/12/2016 revealed pulmonary embolic disease. There are also multiple pulmonary embolic disease involving an upper lobe vessel on the right, minimal linear airspace density in the posterior sulcus on the right most consistent with segmental atelectasis. Remaining lung foy are clear. Venous Doppler obtained on 12/13/2016 revealed acute incompletely occlusive clot of the left popliteal vein, acute clot in one of the posterior tibial veins and one of the perirenal veins. PHYSICAL EXAMINATION: GENERAL: On examination the patient is a well developed, well nourished, 31-year-old female who is awake, alert, and oriented to person, place, time, and situation. She is verbal conversational, ambulatory, and does not appear to be in any acute distress. VITAL SIGNS: Are as follows: Temperature 98.6, pulse 60, respirations 18, blood pressure 108/64, oxygen saturation 96% on room air. SKIN: Warm and dry. No rash. Not diaphoretic. HEENT: Pupils are equal, round, and reactive to light and accommodation. Conjunctivae pink. There is no JVD. CARDIOVASCULAR: Heart is regular. There is no murmur or rub. CHEST: Clear to auscultation. ABDOMEN: Soft, nontender, nondistended. BACK: No CVA tenderness or sacral edema. EXTREMITIES: No clubbing, cyanosis, edema. DISCHARGE PLANNIN. The patient is advised to follow up with her primary care provider within 1 week for hospital followup. 2. The patient will follow up with Dr. Baker as scheduled. Time spent on this discharge including assessment, plan, physical examination, patient education, and speciality collaboration is 25 minutes. DICTATING PHYSICIAN: PATTI SCHILLING NP [id number] PHY#: [id number] ID: [id number] JOB#: [id number] ACCT: [id number] cc:ALEJANDRO ANAND M.D. PATTI SCHILLING NP >
== END 2016-12-14 11:35 | disposition home or self-care (01) | DRG 299 ==
LOC: ER 16:43 → UNDOADMOB 12-13 00:21 → EH 12-13 00:21 → 3S 12-13 03:03 → EH 12-13 03:03 → 3S 12-13 08:14 → EH 12-13 08:14 → UNDOADMOB 12-13 08:14 → INTOOBSV 12-13 15:15 → OBSVTOIN 12-13 15:15 → 3S 12-13 15:15
PROVIDERS: ADMIT Family Medicine; ATTEND Family Medicine
DX: I82.432 Acute embolism and thrombosis of left popliteal vein (principal); I26.99 Other pulmonary embolism without acute cor pulmonale; I82.443 Acute embolism and thrombosis of tibial vein, bilateral; F17.210 Nicotine dependence, cigarettes, uncomplicated; Z79.899 Other long term (current) drug therapy; Z79.3 Long term (current) use of hormonal contraceptives; Z80.3 Family history of malignant neoplasm of breast; Z82.5 Family history of asthma and other chronic lower respiratory diseases
CPT/HCPCS: 36415; 71020; 71275; 80053; 84703; 85025; 85027; 85379; 85610; 85730; 93005; 93010; 93970; 96372; 99285; G0378; J1650; J3490

== ENCOUNTER 2018-02-27 17:21 | Emergency (ER) | payer OTHER ==
--- NOTE | 2018-02-27 18:09 | ER Document Report ---
ED Respiratory Problem - General TRAVEL OUTSIDE OF THE [place] IN LAST 30 DAYS: No - HPI Worsened by: Dictated <JEFFERY AHUMADAWAQASZACHARY - Last Filed: 02/27/18 20:50> <ERLIN HAMMOND - Last Filed: 02/27/18 21:36> - General Chief Complaint: Shortness Of Breath Stated Complaint: DIFFICULTY BREATHING Time Seen by Provider: 02/27/18 17:47 Notes: Chief complaint: Shortness of breath History of complain:( obtained from----patient) 32 years old female with a history of PE, Xarelto was discontinued as of July this year, presents today with sudden onset of shortness of breath on minimal exertion, burning sensation in the chest. No fever chills cough other constitutional symptoms. Denies any swelling of the lower extremity. Onset: As above Duration: Since this morning moderate Quality: Burning sensation Context: History of PE Exacerbating factor and relieving factors: REVIEW OF SYSTEMS: CONSTITUTIONAL : Denies fever, chills, or sweats. Denies recent illness. EENT: Denies eye, ear, throat, or mouth pain or symptoms. Denies nasal or sinus congestion or discharge. Denies throat, tongue, or mouth swelling or difficulty swallowing. CARDIOVASCULAR: Denies chest pain. Denies palpitations or racing or irregular heart beat. Denies ankle edema. RESPIRATORY: Denies cough, cold, or chest congestion. Denies shortness of breath, difficulty breathing, or wheezing. GASTROINTESTINAL: Denies distention. Denies nausea, vomiting, or diarrhea. Denies blood in vomitus, stools, or per rectum. Denies black, tarry stools. Denies constipation. GENITOURINARY: Denies difficulty urinating, painful urination, burning, frequency, blood in urine, or discharge. FEMALE GENITOURINARY: Denies vaginal bleeding, heavy or abnormal periods, irregular periods. Denies vaginal discharge or odor. MUSCULOSKELETAL: Denies back or neck pain or stiffness. Denies joint pain or swelling. SKIN: Denies rash, lesions or sores. HEMATOLOGIC : Denies easy bruising or bleeding. LYMPHATIC: Denies swollen, enlarged glands. NEUROLOGICAL: Denies confusion or altered mental status. Denies passing out or loss of consciousness. Denies dizziness or lightheadedness. Denies headache. Denies weakness or paralysis or loss of use of either side. Denies problems with gait or speech. Denies sensory loss, numbness, or tingling. Denies seizures. PSYCHIATRIC: Denies anxiety or stress. Denies depression, suicidal ideation, or homicidal ideation. ALL OTHER SYSTEMS REVIEWED AND NEGATIVE. PHYSICAL EXAMINATION: GENERAL: Well-appearing, well-nourished and in no acute distress. HEAD: Atraumatic, normocephalic. EYES: Pupils equal round and reactive to light, extraocular movements intact, conjunctiva are normal. ENT: Nares patent, oropharynx clear without exudates. Moist mucous membranes. NECK: Normal range of motion, supple without lymphadenopathy LUNGS: Breath sounds clear to auscultation bilaterally and equal. No wheezes rales or rhonchi. HEART: Regular rate and rhythm without murmurs ABDOMEN: Soft, nontender, nondistended abdomen. No guarding, no rebound. No masses appreciated. Examination of genitals-deferred Musculoskeletal: Normal range of motion, no pitting or edema. No cyanosis. NEUROLOGICAL: Cranial nerves grossly intact. Normal speech, normal gait. Normal sensory, motor exams PSYCH: Normal mood, normal affect. SKIN: Warm, Dry, normal turgor, no rashes or lesions noted. Dictation was performed using [employer] voice recognition software (KIRT AHUMADA) - [facility] Notes: Dictated (KIRT AHUMADA) - Related Data Allergies/Adverse Reactions: No Known Allergies Allergy (Verified 02/27/18 17:29) Past Medical History - Social History Smoking Status: Never Smoker Chew tobacco use (# tins/day): No Frequency of alcohol use: None Lives with: Family Family History: Reviewed & Not Pertinent Patient has suicidal ideation: No Patient has homicidal ideation: No - Past Medical History Cardiac Medical History: Denies: Hx Congestive Heart Failure, Hx DVT, Hx Heart Attack, Hx Hypercholesterolemia, Hx Hypertension, Hx Pulmonary Embolism Pulmonary Medical History: Denies: Hx Asthma, Hx COPD, Hx Sleep Apnea Neurological Medical History: Denies: Hx Seizures Endocrine Medical History: Denies: Hx Diabetes Mellitus Type 1, Hx Diabetes Mellitus Type 2, Hx Hyperthyroidism, Hx Hypothyroidism Renal/ Medical History: Denies: Hx Peritoneal Dialysis GI Medical History: Denies: Hx Cirrhosis, Hx Gastroesophageal Reflux Disease, Hx Hepatitis Musculoskeletal Medical History: Denies Hx Arthritis Psychiatric Medical History: Denies: Hx Depression Infectious Medical History: Denies: Hx C-Diff, Hx Hepatitis, Hx MRSA Past Surgical History: Reports: Hx Tonsillectomy, Other - Breast augmentation <KIRT AHUMADA - Last Filed: 02/27/18 20:50> Review of Systems <KIRT AHUMADA - Last Filed: 02/27/18 20:50> <ERLIN HAMMOND - Last Filed: 02/27/18 21:36> - Review of Systems Notes: Dictated (KIRT AHUMADA) Physical Exam <KIRT AHUMADA - Last Filed: 02/27/18 20:50> <ERLIN HAMMOND - Last Filed: 02/27/18 21:36> - Vital signs Vitals: Temp Pulse Resp BP Pulse Ox 98.8 F 89 16 124/78 97 02/27/18 17:33 02/27/18 17:33 02/27/18 17:33 02/27/18 17:33 02/27/18 17:33 - Notes Notes: Dictated (KIRT AHUMADA) Course - Laboratory Result Diagrams: 02/27/18 18:35 02/27/18 18:35 <KIRT AHUMADA - Last Filed: 02/27/18 20:50> - Laboratory Result Diagrams: 02/27/18 18:35 02/27/18 18:35 <ERLIN HAMMOND - Last Filed: 02/27/18 21:36> - Re-evaluation Re-evalutation: 02/27/18 21:31 32-year-old female with chief complaint of shortness of breath, she has had a productive cough with some yellow sputum since yesterday, possible intermittent wheezing, she continues to smoke, she no longer takes oral contraceptive after she was told that the combination of smoking and oral contraceptive caused her previous blood clot. She is not currently on a blood thinner. She states she is trying to quit smoking. She denies any fever. She states that earlier when she walked across to how she got really short of breath and she became concerned because of this, however she denies any current symptoms other than mild intermittent cough. Mild discomfort in her chest but only specifically noted with cough. On my physical evaluation she has no wheezing, she is well- appearing, no tachypnea, no tachycardia, asking to go home. Recommended we get an EKG and test because he has not been obtained yet, patient declines , states he is ready to leave. LMP within the past month. CTA is negative for any acute findings including blood clot or pneumonia. Because of intermittent wheezing, cough, smoking patient will be placed on prednisone, Tessalon, discussed follow-up, discussed return precautions, patient states understanding and agreement with plan. (ERLIN HAMMOND) - Vital Signs Vital signs: Temp Pulse Resp BP Pulse Ox 98.8 F 89 16 124/78 97 02/27/18 17:33 02/27/18 17:33 02/27/18 17:33 02/27/18 17:33 02/27/18 17:33 - Laboratory Laboratory results interpreted by me: 02/27/18 02/27/18 18:35 18:35 WBC 11.0 H Glucose 114 H AST 43 H ALT 70 H Total Protein 8.3 H Discharge <KIRT AHUMADA - Last Filed: 02/27/18 20:50> <ERLIN HAMMOND - Last Filed: 02/27/18 21:36> - Discharge Clinical Impression: Shortness of breath, Cough Condition: Stable Disposition: HOME, SELF-CARE Additional Instructions: Your CAT scan of the chest is negative for blood clot, pneumonia, or other concerning findings. Your examination is consistent with viral upper respiratory infection. This should resolve with time. Take Tessalon for cough, take prednisone as prescribed, stop smoking. Follow-up with primary care. Return for any concerning or worsening symptoms including difficulty breathing, passing out, spiking fever, or any other concerning or worsening symptoms. Prescriptions: Benzonatate [Tessalon Perles 100 mg Capsule] 100 mg PO Q8HP PRN #20 capsule PRN Reason: Prednisone 40 mg PO DAILY #10 tablet
[2018-02-27 18:53] LABS: ABSOLUTE BASOPHILS # (AUTO) 0.1 10^3/uL (0.0-0.2); ABSOLUTE EOSINOPHILS # (AUTO) 0.2 10^3/uL (0.0-0.6); ABSOLUTE LYMPHOCYTES (AUTO) 3.4 10^3/uL (0.5-4.7); ABSOLUTE MONOCYTES (AUTO) 0.9 10^3/uL (0.1-1.4); ABSOLUTE NEUT (AUTO) 6.3 10^3/uL (1.7-8.2); BASOPHILS % (AUTO) 0.7 % (0-2); EOSINOPHILS % (AUTO) 2.2 % (0-6); HEMATOCRIT 41.9 % (36.0-47.0); HEMOGLOBIN 14.4 g/dL (12.0-15.5); LYMPHOCYTES % (AUTO) 31.1 % (13-45); MEAN CORPUSCULAR HEMOGLOBIN 32.2 pg (27.0-33.4); MEAN CORPUSCULAR HGB CONC 34.4 g/dL (32.0-36.0); MEAN CORPUSCULAR VOLUME 94 fl (80-97); MONOCYTES % (AUTO) 8.3 % (3-13); PLATELET COUNT 259 10^3/uL (150-450); RED BLOOD COUNT 4.48 10^6/uL (3.72-5.28); RED CELL DISTRIBUTION WIDTH 13.1 % (11.5-14.0); SEGMENTED NEUTROPHILS % (AUTO) 57.7 % (42-78); TOTAL CELLS COUNTED % (AUTO) 100 %
[2018-02-27 19:07] LABS: ALANINE AMINOTRANSFERASE 70 U/L (9-52); ALBUMIN 4.7 g/dL (3.5-5.0); ALKALINE PHOSPHATASE 81 U/L (38-126); ANION GAP 14 (5-19); ASPARTATE AMINO TRANSFERASE 43 U/L (14-36); BILIRUBIN,DIRECT 0.2 mg/dL (0.0-0.4); BILIRUBIN,TOTAL 0.4 mg/dL (0.2-1.3); BLOOD UREA NITROGEN 14 mg/dL (7-20); CALCIUM 10.2 mg/dL (8.4-10.2); CARBON DIOXIDE 24 mmol/L (22-30); CHLORIDE 106 mmol/L (98-107); GLUCOSE 114 mg/dL (75-110); SODIUM 144.1 mmol/L (137-145); TOTAL PROTEIN 8.3 g/dL (6.3-8.2)
--- NOTE | 2018-02-27 21:09 | RADIOLOGY REPORT (SQ) ---
EXAM DESCRIPTION: CTA CHEST COMPLETED DATE/TIME: 02/27/2018 8:05 pm REASON FOR STUDY: Rule out PE COMPARISON: None. TECHNIQUE: CT scan of the chest performed using helical scanning technique with dynamic intravenous contrast injection. Images reviewed with lung, soft tissue and bone windows. Reconstructed coronal and sagittal MPR images reviewed. Additional 3 dimensional post-processing performed to develop Maximal Intensity Projection images (WI P). All images stored on PACS. All CT scanners at this facility use dose modulation, iterative reconstruction, and/or weight based d osing when appropriate to reduce radiation dose to as low as reasonably achievable (ALARA). [facility]: Dose Right [facility]: CareDose [facility]: Dose Right [facility]: Teradose 4D [facility]: AsicAhead CONTRAST TYPE AND DOSE: contrast/concentration: Isovue 350.00 mg/ml; Total Contrast Delivered: 67.0 ml; Total Saline Delivered: 70.0 ml Contrast bolus optimized for the pulmonary arteries. Not diagnostic for the aorta. RENAL FUNCTION: BUN 14 creatinine 0.7 RADIATION DOSE: CT Rad equipment meets quality standard of care and radiation dose reduction techniq ues were employed. CTDIvol: 9.9 - 14.3 mGy. DLP: 555 mGy-cm. . LIMITATIONS: None. FINDINGS: LUNGS AND PLEURA: No masses, infiltrates, or pneumothorax. No pleural effusions or pleura l calcifications. AORTA AND GREAT VESSELS: No aneurysm. Contrast bolus not optimized for the aorta. HEART: No pericardial effusion. No significant coronary artery calcifications. PULMONARY ARTERIES: No emboli visualized in the main pulmonary arteries or the segmental branches. HILAR AND MEDIASTINAL STRUCTURES: No identified masses or abnormal nodes. HARDWARE: None in the chest. UPPER ABDOMEN: No significant findings. Limited exam. THYROID AND OTHER SOFT TISSUES: No masses. No adenopathy. BONES: No acute or significant finding. 3D MIPS: Confirm above findings. OTHER: No other significant finding. IMPRESSION: NORMAL CTA OF THE CHEST. NO PULMONARY EMBOLI. COMMENT: Quality ID # [id number]: Final reports with documentation of one or more dose reduction techniques (e.g., Automated exposure control, adjustment of the mA and/or kV according to patient size, use of iterative reconstruction technique) TECHNICAL DOCUMENTATION: JOB ID: [id number] [employer]- All Rights Reserved Reading location - IP/workstation name: [email or web address]
[2018-02-27 21:49] VITALS: BP 128/81
== END 2018-02-27 21:49 | disposition home or self-care (01) ==
LOC: ER 17:21
DX: R06.02 Shortness of breath (principal); R05 Cough; Z86.711 Personal history of pulmonary embolism; Z79.01 Long term (current) use of anticoagulants
CPT/HCPCS: 36415; 71275; 80053; 85025; 85379; 99285

== ENCOUNTER → 2018-06-02 | Outpatient (CLI) | payer OTHER | LOC: OD 07:55 | PROVIDERS: ATTEND Obstetrics & Gynecology Gynecology | DX: O02.1 Missed abortion (principal) | CPT/HCPCS: 36415; 84702 ==

== ENCOUNTER 2018-06-03 13:01 | Day surgery (SDC) | payer OTHER ==
[2018-06-03] MEDS ORDERED: FAMOTIDINE INJ/PF 20 MG/2 ML SDV IV ONE (13:57)
[2018-06-03] MEDS ORDERED: METOCLOPRAMIDE HCL INJ/PF 10 MG/2 ML SDV ONE (13:58)
[2018-06-03] MEDS ORDERED: ALBUTEROL SULFATE 0.083% NEB 2.5 MG/3 ML AMPUL NEB ONE (14:01)
[2018-06-03] MEDS ORDERED: MIDAZOLAM 2 MG/2 ML INJ ONE ×2 (14:02→14:15)
[2018-06-03 14:05] LABS: APPEARANCE,URINE SLIGHTLY-CLOUDY; BILIRUBIN,URINE NEGATIVE (NEGATIVE); COLOR,URINE YELLOW; GLUCOSE, URINE NEGATIVE (NEGATIVE); KETONES,URINE NEGATIVE (NEGATIVE); LEUKOCYTE ESTERASE,URINE NEGATIVE (NEGATIVE); NITRITE,URINE NEGATIVE (NEGATIVE); PROTEIN,URINE NEGATIVE (NEGATIVE); URINE SPECIFIC GRAVITY 1.021; UROBILINOGEN,URINE NEGATIVE mg/dL (<2.0)
[2018-06-03] MEDS ORDERED: FENTANYL CITRATE INJ/PF 100 MCG/2 ML AMPUL ONE ×2 (14:15→16:06)
[2018-06-03] MEDS ORDERED: ONDANSETRON HCL INJ/PF 4 MG/2 ML SDV ONE ×2 (14:15→14:21)
[2018-06-03] MEDS ORDERED: PROPOFOL INJ 200 MG/20 ML VIAL IV ONE (14:15)
[2018-06-03] MEDS ORDERED: ACETAMINOPHEN 0 MG/0 ML RTUPB IV ONE (14:20)
[2018-06-03] MEDS ORDERED: KETOROLAC TROMETHAMINE 60 MG/2 ML SDV ONE (14:21)
[2018-06-03] MEDS ORDERED: LIDOCAINE 2% INJ-PF (20 MG/ML) 10 ML AMPUL ONE (14:22)
[2018-06-03] MEDS ORDERED: DEXAMETHASONE SOD PHOSPHATE INJ 4 MG/1 ML VIAL ONE (14:22)
[2018-06-03] MEDS ORDERED: BUPIVACAINE HCL 0.5 % INJ/PF 30 ML SDV ONE (14:26)
[2018-06-03 14:33] LABS: HEMATOCRIT 37.8 % (36.0-47.0); HEMOGLOBIN 13.2 g/dL (12.0-15.5); MEAN CORPUSCULAR HEMOGLOBIN 32.9 pg (27.0-33.4); MEAN CORPUSCULAR HGB CONC 34.8 g/dL (32.0-36.0); MEAN CORPUSCULAR VOLUME 95 fl (80-97); PLATELET COUNT 221 10^3/uL (150-450); RED CELL DISTRIBUTION WIDTH 12.7 % (11.5-14.0)
[2018-06-03] MEDS ORDERED: IBUPROFEN 800 MG TABLET PO PRN (14:39)
[2018-06-03] MEDS ORDERED: RINGERS SOLUTION,LACTATED 1,000 ML IV PRN (14:39)
[2018-06-03] MEDS ORDERED: OXYCODONE-ACETAMINOPHEN 5-325 MG TABLET PO PRN ×2 (14:39)
[2018-06-03 14:54] LABS: INTERNATIONAL RATION (INR) 0.91; PROTHROMBIN TIME 12.7 SEC (11.4-15.4)
[2018-06-03 14:55] LABS: PARTIAL THROMBOPLASTIN TIME 27.6 SEC (23.5-35.8)
[2018-06-03] MEDS ORDERED: ONDANSETRON HCL 8 MG TABLET PO PRN (16:17)
[2018-06-03] MEDS ORDERED: RINGERS SOLUTION,LACTATED 500 ML IV ONE (16:30)
[2018-06-03] MEDS ORDERED: RINGERS SOLUTION,LACTATED 550 ML IV ONE (16:45)
[2018-06-03] MEDS ORDERED: OXYCODONE-ACETAMINOPHEN 5-325 MG TABLET ONE (17:10)
[2018-06-03] MEDS ORDERED: IBUPROFEN 800 MG TABLET PO SCH (18:00)
[2018-06-03 18:21] VITALS: BP 119/73
--- NOTE | 2018-06-03 20:41 | OPERATIVE REPORT E ---
Operative Report NAME: ALEJANDRO RATLIFF : 1985 AGE: 33Y DATE OF SURGERY: 06/03/2018 ROOM: PREOPERATIVE DIAGNOSIS: MISSED . POSTOPERATIVE DIAGNOSIS: MISSED . OPERATION: Suction dilatation and curettage. ESTIMATED BLOOD LOSS: Less than 25 mL. TISSUE REMOVED: Products of conception. SURGEON: Jose De Jesus CANTU M.D. ANESTHESIA: General. PROCEDURE: The patient was placed in a dorsal lithotomy position, prepped and draped in sterile fashion. The speculum was placed. Cervix was visualized and grasped with a single-toothed tenaculum, sounded to a depth of 9 cm. Cervix was dilated. A #8 suction catheter was used for final suction. Curettage was followed by sharp curettage, followed by repeat suction and what appeared to be products of conception was aspirated from the uterus. The single-toothed tenaculum was removed and hemostasis was noted. The patient tolerated the procedure well and was taken to recovery in good condition. DICTATING PHYSICIAN: Jose De Jesus CANTU M.D. [id number] PHY#: [id number] ID: [id number] JOB#: [id number] ACCT: [id number] cc:Jose De Jesus CANTU M.D. >
== END 2018-06-03 18:20 | disposition home or self-care (01) ==
LOC: OROUT 13:01
PROVIDERS: ATTEND Obstetrics & Gynecology Gynecology
DX: O02.1 Missed abortion (principal); N80.0 Endometriosis of uterus; F17.210 Nicotine dependence, cigarettes, uncomplicated
CPT/HCPCS: 36415; 85027; 85610; 85730; 81001; 88304 ×2; 94640; 59820; J2250; J1100; J3010; J2765; J2405; J2704; S0028; J3490; 1965; J0131; J1885